=== PATIENT | male | born 1970 | race African-American/Black ===

== ENCOUNTER 2018-07-12 11:13 | Emergency (ER) | payer OTHER ==
[2018-07-12 11:39] VITALS: BP 139/99; PULSE 80; TEMP 98.6; BMI 25.7
[2018-07-12] MEDS ORDERED: IBUPROFEN 600 MG TABLET (FP) PO ONE ×2 (12:07→12:10)
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
== END 2018-07-12 12:37 | disposition home or self-care (01) ==
LOC: JER 11:13 → JERFT 11:13
DX: S29.012A Strain of muscle and tendon of back wall of thorax, initial encounter (principal); S20.312A Abrasion of left front wall of thorax, initial encounter; S60.811A Abrasion of right wrist, initial encounter; S40.212A Abrasion of left shoulder, initial encounter; V49.88XA Car occupant (driver) (passenger) injured in other specified transport accidents, initial encounter; Y92.412 Parkway as the place of occurrence of the external cause; Y93.89 Activity, other specified; Y99.8 Other external cause status
CPT/HCPCS: 99281-25

== ENCOUNTER 2024-12-29 15:44 | Emergency (ER) | payer OTHER ==
[2024-12-29 15:57] VITALS: BMI 31.1
[2024-12-29] MEDS ORDERED: ADENOSINE 6 MG/2 ML VIAL IVPUSH ONE (16:02)
[2024-12-29] MEDS: ADENOSINE 6 MG/2 ML VIAL IVPUSH ONE (16:15)
[2024-12-29 16:39] LABS: ABSOLUTE IMMATURE GRANULOCYTES 0.03 x10^3/uL (0.0-0.031); BASOPHILS # 0.05 x10^3/uL (0.01-0.08); EOSINOPHIL % 0.7 % (0.8-7.0); EOSINOPHILS # 0.06 x10^3/uL (0.04-0.54); HEMATOCRIT 47.6 % (40.1-51.0); HEMOGLOBIN 15.2 g/dL (13.7-17.5); MCHC 31.9 g/dl (32.3-36.5); MEAN CELL VOLUME 92.1 fl (79.0-92.2); MONOCYTE # 0.72 x10^3/uL (0.30-0.82); MONOCYTE % 8.2 % (5.3-12.2); PLATELET COUNT 262 x10^3/uL (163-337); RDW 12.7 % (12.2-16.1)
[2024-12-29 16:58] LABS: POTASSIUM 4.1 mmol/L (3.5-5.1)
[2024-12-29 17:00] LABS: CALCIUM 9.8 mg/dL (8.5-10.1)
[2024-12-29 17:01] LABS: ALBUMIN 3.9 g/dl (3.4-5.0); BLOOD UREA NITROGEN 10.4 mg/dL (7-18)
[2024-12-29 17:04] LABS: CREATININE 1.1 mg/dL (0.55-1.3)
[2024-12-29 17:05] LABS: BILIRUBIN,TOTAL 0.3 mg/dL (0.2-1); TOT PROT 7.2 g/dl (6.4-8.2)
[2024-12-29 19:22] VITALS: BP 188/115; PULSE 87; RESP 16; TEMP 98.2
== END 2024-12-29 19:24 | disposition home or self-care (01) ==
LOC: JER 15:44
PROC: 3E033GC Introduction of Other Therapeutic Substance into Peripheral Vein, Percutaneous Approach (ICD-10-PCS; principal; 2024-12-29)
DX: I47.10 Supraventricular tachycardia, unspecified (principal); R61 Generalized hyperhidrosis
CPT/HCPCS: 36415; 80053; 82962; 85025; 86803; 93005; 93010; 99291